=== PATIENT | female | born 1935 | race Caucasian/White ===

== ENCOUNTER → 2016-12-23 | Day surgery (SDC) | payer MEDICARE ==
[~2016-12-23] MED LIST: ASPI-99 PO; BUPIVACAINE/EPINEPHRINE 0.5% PF 10 ML VIAL ONE; HYDR-2768 PO; HYDR-3580 PO; LACTATED RINGER'S 1000 ML INJ 1,000 ML ONE; LIDOCAINE 1%/EPINEPHrine 1:100,000 SOLN 20 ML VIAL ONE; NEOMYCIN/POLYMYXIN/BACITRACIN OINT 15 GM TUBE ONE; NORV5TAB PO; OMEP20TA39 PO; PROPOFOL 500 MG/50 ML BTL IV ONE; ceFAZolin INJ 1,000 MG VIAL ONE
--- NOTE | 2016-12-23 09:46 | TN ---
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 PROCEDURE Excision of squamous cell carcinoma using an elliptical incision measuring 4 x 6 cm with a double layer closure. ANESTHESIA TIVA. SURGEON Dr. Thomas LIB[employer]IST Lisa Monroe, medical student 3. INDICATIONS This is a pleasant 81-year-old female who had skin lesion in her right lower extremity. This was biopsied and found be a squamous cell. Plans were made for wide excision to obtain clear margins. PROCEDURE The patient was taken to the operating room, placed in supine position after TIVA anesthesia. Her right leg is prepped with Betadine. We marked out the area in question, making an elliptical incision 6 x 4 cm to completely remove the specimen. It was anesthetized with lidocaine solution first. The incision is then made and the specimen is removed, marked with a stitch at the 12 o'clock position for pathological orientation. We then undermined medially and laterally to reapproximate the deep layer with a 3-0 Vicryl and the skin with a 3-0 nylon interrupted. Sterile bandage applied. The patient tolerated the procedure well; no immediate postop complications. Heladio Thomas MD JDB/SSB /9:35 AM /9:39 AM
== END | disposition home or self-care (01) ==
LOC: ESDC 06:59
PROVIDERS: ATTEND Surgery
DX: C44.722 Squamous cell carcinoma of skin of right lower limb, including hip (principal)
CPT/HCPCS: 00400; 11606; 12032; 88305; J0690; J3010; J7120